=== PATIENT | female | born 1965 | race Caucasian/White ===

== ENCOUNTER 2019-10-30 18:08 | Emergency (ER) | payer OTHER, SELFPAY ==
--- NOTE | ~2019-10-30 | CT_ITS ---
EXAMINATION: CT abdomen pelvis wo con DATE: 10/30/2019 19:18 INDICATION: Abdominal pain. Left low back pain. TECHNIQUE: Computed tomography (CT) of the abdomen and pelvis was performed without intravenous contr ast. Automated exposure control and iterative reconstruction technique were employed. Exam dose: 110 0.51 mGy-cm total exam DLP. COMPARISON: None. FINDINGS: The lung bases are clear. Normal heart size. No pericardial or pleural effusion. Small sliding hiatal hernia. Status post cholecystectomy. The liver, spleen, pancreas, adrenal glands and kidneys are unremarkable on this limited noncontrast examination, with the exception of a moderately prominent asymmetric lef t renal pelvis. No urinary tract calculus or hydroureteronephrosis. The urinary bladder is unremarkab le. Status post hysterectomy. Normal caliber of the abdominal aorta. No intraperitoneal or retroperitoneal or pelvic mass lesion or adenopathy or ascites. There are scattered diverticula of the left colon; there is mild pericolic soft tissue fat infiltrati on in the sigmoid area, suggesting focal sigmoid diverticulitis. No abscess is identified. Normal appendix. No bowel obstruction, bowel wall thickening, pneumatosis or intraperitoneal free air . Included skeletal structures are unremarkable. IMPRESSION: Mild sigmoid diverticulitis; no abscess cavity is identified. Diverticulosis of the left colon Normal appendix Status post cholecystectomy Small hiatal hernia Reviewed, dictated and finalized at [facility]. Reviewed, dictated and finalized at location [facility].
[2019-10-30 18:09] VITALS: BP 147/88; PULSE 93; RESP 17; TEMP 37.3; O2SAT 98
--- NOTE | 2019-10-30 18:24 | ED.BACK ---
HPI - Back Pain/Injury General Chief Complaint: Back Pain/Injury Stated Complaint: Lower Back Pain Time Seen by Provider: 10/30/19 18:14 Source: patient Mode of arrival: ambulatory Limitations: no limitations History of Present Illness HPI Narrative: Patient is a 54-year-old female who presents to emergency department with left lower back pain has been present for the last several days denies injury or trauma pain does not radiate patient denies similar occurrence in the past patient has attempted [id number] medications with minimal improvement patient presents per private vehicle in no distress Related Data Home Medications Medication Instructions Recorded Confirmed progesterone micronized mg 10/30/19 10/30/19 thyroid (pork) [[place] Thyroid] 10/30/19 Allergies Allergy/AdvReac Type Severity Reaction Status Date / Time No Known Allergies Allergy Verified 10/30/19 18:11 Review of Systems Review of Systems: All systems reviewed & are unremarkable except as noted in HPI and below PMFSH Past Medical History Medical History (Updated 10/30/19 @ 20:14 by Gerald Kaplan PA-C) Hypothyroidism Surgical History Surgical History H/O: hysterectomy Social History Social History Smoking status: Never smoker Gender identity (if verbalized by the patient): Female Exam Narrative: Exam Narrative: GENERAL: Well-appearing, well-nourished, and in no acute distress. HEAD: Normocephalic, atraumatic. EYES: PERRLA and EOMI. ENT: Nares clear, no rhinorrhea or epistaxis. Mucous membranes moist. CHEST: Clear to auscultation. No respiratory distress. No wheezes rales or rhonchi HEART: Regular rate and rhythm. No murmur heard. EXTREMITIES: Normal range of motion. No edema. Left lower lumbar paraspinal tenderness no midline or right-sided tenderness SKIN: Warm, dry, no rash. NEURO: No focal deficits. Alert and oriented x3. Cranial nerves II through XII grossly intact PSYCH: Normal mood and affect. Course Course Emergency Course: Patient in the room at this time made aware of case findings treatment plan and diagnosis given medications in the emergency department will be treated for diverticulitis Vital Signs Vital signs: Vital Signs Temperature 99.2 F 10/30/19 18:09 Pulse Rate 93 10/30/19 18:09 Respiratory Rate 17 10/30/19 18:09 Blood Pressure 147/88 H 10/30/19 18:09 Pulse Oximetry 98 10/30/19 18:09 Temperature 99.2 F 10/30/19 18:09 Pulse Rate 93 10/30/19 18:09 Respiratory Rate 17 10/30/19 18:09 Blood Pressure 147/88 H 10/30/19 18:09 Pulse Oximetry 98 10/30/19 18:09 MDM - Back Pain/Injury MDM Narrative Medical decision making narrative: Patient with uncomplicated diverticulitis as the etiology of her symptoms felt appropriate for discharge home will be given gastroenterology follow-up and provided with reasons to return patient is afebrile nontoxic-appearing no distress Lab Data Result diagrams: 10/30/19 18:22 10/30/19 18:22 Labs: Lab Results 10/30/19 10/30/19 10/30/19 Range/Units 18:22 18:22 18:22 WBC 15.2 H (4.5-10.0) K/mm3 RBC 4.66 (4.2-5.4) M/mm3 Hgb 13.1 (12.0-15.0) g/dL Hct 40.7 (37.0-47.0) % MCV 87.3 (80-100) fl MCH 28.1 (26-34) pg MCHC 32.2 (32-36) g/dl RDW 13.1 (11.5-14.5) % Plt Count 268 (150-375) k/mm3 MPV 10.4 (7.4-10.4) fl Immature Gran % (Auto) 0.5 (0-0.5) % Neut % (Auto) 67.3 (45.5-73.1) % Lymph % (Auto) 22.7 (18.3-44.2) % Ocean % (Auto) 8.1 (2.6-8.5) % Eos % (Auto) 1.2 (0-4.4) % Baso % (Auto) 0.2 (0.2-1.2) % Lymph # (Auto) 3.46 H (0.9-3.2) K/mm3 Ocean # (Auto) 1.2 H (0.1-0.6) K/mm3 Eos # (Auto) 0.2 (0-0.3) K/mm3 Baso # (Auto) 0.0 (0.0-0.1) K/mm3 Abs Immat Gran (auto) 0.08 H (0.00-0.031) K/mm3 Absol
[2019-10-30] MEDS: SODIUM CHLORIDE 0.9% IV 1,000 ML 999 ML IV CONT (18:32)
[2019-10-30] MEDS: KETOROLAC 30 MG/ML VIAL (*BKC) IV PUSH (18:32)
[2019-10-30 18:42] LABS: Basophils Percent Auto 0.2 % (0.2-1.2); Eosinophils Absolute Auto 0.2 K/mm3 (0-0.3); Eosinophils Percent Auto 1.2 % (0-4.4); Hematocrit 40.7 % (37.0-47.0); Hemoglobin 13.1 g/dL (12.0-15.0); Immature Granulocyte Absolute 0.08 K/mm3 (0.00-0.031); Immature Granulocyte Percent A 0.5 % (0-0.5); Lymphocytes Absolute Auto 3.46 K/mm3 (0.9-3.2); Lymphocytes Percent Auto 22.7 % (18.3-44.2); Mean Corpuscular HGB Conc 32.2 g/dl (32-36); Mean Corpuscular Hemoglobin 28.1 pg (26-34); Mean Corpuscular Volume 87.3 fl (80-100); Mean Platelet Volume 10.4 fl (7.4-10.4); Monocytes Absolute Auto 1.2 K/mm3 (0.1-0.6); Monocytes Percent Auto 8.1 % (2.6-8.5); Neutrophils Absolute Auto 10.2 K/mm3 (1.3-6.7); Neutrophils Percent Auto 67.3 % (45.5-73.1); Platelet Count Result 268 k/mm3 (150-375); Red Blood Count 4.66 M/mm3 (4.2-5.4); Red Cell Distribution Width 13.1 % (11.5-14.5); White Blood Count 15.2 K/mm3 (4.5-10.0)
[2019-10-30 18:48] LABS: Add Urine Microscopic? YES; Appearance Urine Clear (Clear); Bilirubin Urine Negative (Negative); Blood Urine 2+ (Negative); Color Urine Yellow (Yellow); Glucose Urine UA Negative (Negative); Ketones Urine Negative (Negative); Leukocyte Esterase Ur Negative LEU/UL (Negative); Mucus Urine Rare /lpf; Nitrate Urine Negative (Negative); Protein Urine Negative (Negative); Specific Grav Ur 1.018 (1.001-1.035); Squamous Epithelial Cell Urine Occasional /hpf (Few); Urobilinogen Urine Negative mg/dL (<2.0); WBC Urine 0-3 /hpf
[2019-10-30 18:53] LABS: Anion Gap 7 mmol/L (8-16); Blood Urea Nitrogen 15 mg/dL (7-17); Carbon Dioxide 28 mmol/L (22-30); Chloride 101 mmol/L (98-107); Estimated CRCL calculation 101 ml/min; Estimated Glomerular Filt Rate > 60; Glucose 96 mg/dL (65-105); Potassium 3.9 mmol/L (3.4-5.0); Sodium 136 mmol/L (137-145)
[2019-10-30 20:26] VITALS: BP 135/72; PULSE 78; RESP 18; O2SAT 99
== END 2019-10-30 20:28 | disposition home or self-care (01) ==
PROVIDERS: Emergency Provider Family Medicine; PCP Chiropractor
DX: K57.32 Diverticulitis of large intestine without perforation or abscess without bleeding (principal); E03.9 Hypothyroidism, unspecified; K44.9 Diaphragmatic hernia without obstruction or gangrene
CPT/HCPCS: 36415; 74176; 80048; 81001; 85025; 96361; 96374; 99284; J1885; J7030

== ENCOUNTER 2019-11-15 07:17 | Emergency (ER) | payer OTHER, SELFPAY ==
[2019-11-15 07:41] VITALS: BP 153/97; PULSE 72; RESP 18; TEMP 37; O2SAT 100
[2019-11-15 08:02] LABS: Add Urine Microscopic? YES; Appearance Urine Clear (Clear); Bilirubin Urine Negative (Negative); Blood Urine 1+ (Negative); Color Urine Colorless (Yellow); Glucose Urine UA Negative (Negative); Ketones Urine Negative (Negative); Leukocyte Esterase Ur Trace LEU/UL (Negative); Nitrate Urine Negative (Negative); Protein Urine Negative (Negative); RBC Urine 0-2 /hpf (0-2); Specific Grav Ur 1.005 (1.001-1.035); Squamous Epithelial Cell Urine Rare /hpf (Few); Transitional Epi Cells Urine Rare /hpf (None Seen); Urobilinogen Urine Negative mg/dL (<2.0); WBC Urine 0-3 /hpf
--- NOTE | 2019-11-15 08:03 | ED.BACK ---
HPI - Back Pain/Injury General Chief Complaint: Back Pain/Injury Stated Complaint: back pain Time Seen by Provider: 11/15/19 07:34 Source: patient Mode of arrival: ambulatory Limitations: no limitations History of Present Illness HPI Narrative: 54-year-old female Complains of right-sided low back pain for 2 weeks No history of injury She was seen here about 2 weeks ago At that time she had an elevated white blood count and a CT scan was done which was consistent with sigmoid diverticulitis, and commented bony structures were said to be unremarkable She completed 10-day course of antibiotics I was unable to secure a timely outpatient follow-up so return to the ER today because her pain persists No fever no vomiting no diarrhea no abdominal pain no urinary symptoms and no neurologic symptoms She is tried [id number] ibuprofen which has not helped much MD elicited complaint: back pain Location: lumbar spine and right lower back Exacerbating factors: none Relieving factors: none Associated symptoms: denies other symptoms Related Data Home Medications Medication Instructions Recorded Confirmed progesterone micronized mg 10/30/19 10/30/19 thyroid (pork) [[place] Thyroid] 10/30/19 Allergies Allergy/AdvReac Type Severity Reaction Status Date / Time No Known Allergies Allergy Verified 11/15/19 07:47 [facility] Past Medical History Medical History (Updated 11/15/19 @ 09:42 by Bright Tipotn MD) Hypothyroidism Surgical History Surgical History H/O: hysterectomy Social History Social History Smoking status: Never smoker Gender identity (if verbalized by the patient): Female Exam Const: General: no acute distress and well developed Nutritional Appearance: well nourished and obese Orientation/consciousness: patient oriented x3 (alert) and Other orientation findings (Alert) Limitations: no limitations HENMT: Head: normocephalic and atraumatic Ears: external ears normal General nose exam: No nasal discharge present Face and sinus: face symmetric Mouth: Yes lip normal, Yes tongue normal and Yes moist mucous membranes Throat: other (No exudate, no erythema) Eyes: Conjunctivae: conjunctivae normal Sclera: sclerae normal EOM: EOMs intact bilaterally Neck: Neck: full ROM, no lymphadenopathy and supple Thyroid: thyroid normal Chest: Chest palpation & inspection: no tenderness Resp: Effort & Inspection: normal respiratory effort Auscultation: clear to auscultation bilaterally, no rales, no rhonchi, no wheezes and other (breath sounds equal) Cardio: Rate: regular rate Rhythm: regular rhythm Heart sounds: no gallops and no murmurs GI: Inspection: non-distended GI Palp: No abdominal tenderness, Yes Soft to palpation, No Guarding due to palpation present (GI) and No Rigid due to palpation Auscultation: other (bowel sounds present) : General: Yes no CVA tenderness Back/Spine/Pelvis: Thoracic/Lumbar Spine: thoracic and lumbar spine normal to inspection, straight leg raise negative bilaterally, No thoraco-lumbar spasm and No lumbar spinal tenderness Sacroiliac joints: on the right nontender and on the left nontender Skin: General skin exam: normal color and no rashes or lesions noted Neuro: General: patient oriented x3 (alert), moves all extremities and no focal motor deficits Cranial nerves: Yes facial symmetry Speech: normal speech Motor exam (neuro): Motor abnormalities not present Extrem: General: normal to inspection, full ROM and no pedal edema Other: Full range of motion both hips Psych: Affect: normal affect Course Vital Signs Vital signs: Vital Signs Temperature 37.0 C 11/15/19 07:41 Pulse Rate 72 11/15/19 07:41 Respiratory Rate 18 11/15/19 07:41 Blood Pressure 153/97 H 11/15/19 07:41 Pulse Oximetry 100 11/15/19 07:41 Temperature 37.0 C
[2019-11-15 08:24] LABS: Basophils Percent Auto 0.4 % (0.2-1.2); Eosinophils Absolute Auto 0.1 K/mm3 (0-0.3); Eosinophils Percent Auto 1.6 % (0-4.4); Hematocrit 41.6 % (37.0-47.0); Hemoglobin 13.2 g/dL (12.0-15.0); Immature Granulocyte Absolute 0.05 K/mm3 (0.00-0.031); Immature Granulocyte Percent A 0.6 % (0-0.5); Lymphocytes Absolute Auto 2.49 K/mm3 (0.9-3.2); Lymphocytes Percent Auto 31.3 % (18.3-44.2); Mean Corpuscular HGB Conc 31.7 g/dl (32-36); Mean Corpuscular Hemoglobin 28.2 pg (26-34); Mean Corpuscular Volume 88.9 fl (80-100); Mean Platelet Volume 10.8 fl (7.4-10.4); Monocytes Absolute Auto 0.6 K/mm3 (0.1-0.6); Monocytes Percent Auto 8.1 % (2.6-8.5); Neutrophils Absolute Auto 4.6 K/mm3 (1.3-6.7); Platelet Count Result 346 k/mm3 (150-375); Red Blood Count 4.68 M/mm3 (4.2-5.4); Red Cell Distribution Width 12.8 % (11.5-14.5)
[2019-11-15 08:39] LABS: CRP 0.9 mg/dL (<1.0)
[2019-11-15 09:20] VITALS: BP 123/72; PULSE 65; RESP 18; O2SAT 100
== END 2019-11-15 10:26 | disposition home or self-care (01) ==
PROVIDERS: Emergency Provider Emergency Medicine; PCP Chiropractor
DX: M54.5 Low back pain (principal); E03.9 Hypothyroidism, unspecified
CPT/HCPCS: 36415; 81001; 85025; 86140; 99283

== ENCOUNTER → 2020-03-02 08:41 | Outpatient (CLI) | payer OTHER, SELFPAY ==
--- NOTE | ~2020-03-02 | MR_ITS ---
EXAMINATION: MR lumbar spine wo con EXAM DATE: 03/02/2020 09:18 INDICATION: Low back pain, right groin pain since October 2019. TECHNIQUE: Multi-sequential, multiplanar MR images of the lumbar spine were obtained without contrast . Sagittal T1, T2, T2 fat saturation images. Axial T2 weighted images. There is no prior study for comparison. FINDINGS: There is 2 mm retrolisthesis L5 on S1. The vertebral bodies are otherwise aligned. There is mild diffuse lumbar disc disease. The conus medullaris terminates at the L1/2 level and has normal s ignal intensity and morphology. There are no suspicious marrow signal abnormalities. Paraspinal soft tissue is unremarkable. Level by level evaluation: T12-L1: Disc does not extend beyond the endplate margin. Facet arthropathy: Mild bilateral. Neural foraminal stenosis: No stenosis. Central canal stenosis: No stenosis. L1-L2: Disc does not extend beyond the endplate margin. Facet arthropathy: Mild. Neural foraminal stenosis: No stenosis. Central canal stenosis: No stenosis. L2-L3: There is a mild diffuse disc bulge. Facet arthropathy: Mild. Neural foraminal stenosis: No stenosis. Central canal stenosis: No stenosis. L3-L4: There is a mild diffuse disc bulge. Facet arthropathy: Mild to moderate. Neural foraminal stenosis: Mild left. Central canal stenosis: No stenosis. L4-L5: There is a mild diffuse disc bulge. Facet arthropathy: Mild. Neural foraminal stenosis: Mild bilateral. Central canal stenosis: Mild. L5-S1: There is a mild diffuse disc bulge. Facet arthropathy: Mild. Neural foraminal stenosis: Mild to moderate right, mild left. Central canal stenosis: Mild. IMPRESSION: 1. Mild lumbar spondylosis. Reviewed, dictated and finalized at location [facility]. K GENERAL OFFICE IMPRESSION: 1. Mild lumbar spondylosis.
== END ==
PROVIDERS: Visit Provider Chiropractor
DX: M47.896 Other spondylosis, lumbar region (principal)
CPT/HCPCS: 72148

== ENCOUNTER → 2020-05-25 11:22 | Outpatient (CLI) | payer OTHER, SELFPAY ==
--- NOTE | ~2020-05-25 | MM_ITS ---
EXAMINATION: MM screening [facility] BI w rae HISTORY: Screening mammogram TECHNIQUE: Craniocaudal and mediolateral oblique 3-D tomosynthesis images were obtained and synthetic 2-D images were generated. CAD analysis was submitted and interpreted. COMPARISON: 06/25/2018, 03/12/2017 BREAST PARENCHYMAL COMPOSITION: There are scattered areas of fibroglandular density. FINDINGS: There is no evidence of suspicious mass, calcification, or architectural distortion to sugg est malignancy in either breast. There has been no suspicious interval change. IMPRESSION: 1. No mammographic evidence of malignancy. 2. Recommend routine screening mammography in one year. BI-RADS Category 1: Negative Reviewed, dictated and finalized at location [facility].
== END ==
PROVIDERS: PCP Chiropractor; Visit Provider Chiropractor
DX: Z12.31 Encounter for screening mammogram for malignant neoplasm of breast (principal)
CPT/HCPCS: 77063; 77067

== ENCOUNTER 2021-03-12 17:56 | Emergency (ER) | payer OTHER, SELFPAY ==
[2021-03-12] VITALS (15 sets, daily range): BP systolic 126–158; BP diastolic 74–85; PULSE 58–67; RESP 11–24; TEMP 36.7–36.8; O2SAT 96–100
--- NOTE | ~2021-03-12 | CT_ITS ---
EXAMINATION: CT abdomen pelvis w con DATE: 03/13/2021 00:58 INDICATION: Left lower quadrant abdominal pain for 4 days TECHNIQUE: Computed tomography (CT) of the abdomen and pelvis was performed with 100 cc Omnipaque 350 intravenous contrast. Automated exposure control and iterative reconstruction technique were employe d. Exam dose: 10/30/2019 CT abdomen pelvis mGy-cm total exam DLP. COMPARISON: 10/30/2019 CT abdomen pelvis 05/25/2020 bilateral screening mammogram FINDINGS: Incidental finding of up to approximately 2.3 x 4 cm soft tissue density of the right breas t, not evident on 05/25/2020 screening mammogram examination; diagnostic right mammogram is recommended , with ultrasound if required. Normal heart size. No pericardial or pleural effusion. The lung bases are clear of infiltrate or cons olidation. Small fat-containing foramen of Morgagni hernia. Small sliding hiatal hernia. Status post cholecystectomy; this likely accounts for mild prominence of the intrahepatic bile ducts. No hepatic, splenic, pancreatic, and adrenal or suspicious renal space occupying mass lesion is evid ent. Occasional very small renal cysts. Stable prominent left extrarenal pelvis compared to 10/30/2019. Normal caliber of the abdominal aorta. No intraperitoneal or retroperitoneal or pelvic mass lesion or adenopathy or ascites. Normal appendix. Diverticulosis of the sigmoid and descending colon. There is subtle fat stranding surrounding a promi nent diverticulum of the proximal sigmoid colon, likely representing mild diverticulitis without absc ess formation or intraperitoneal free air. Status post hysterectomy. The urinary bladder is unremarkable. Small fat-containing umbilical hernia. Included skeletal structures are unremarkable. IMPRESSION: Possible right breast 4 cm mass is suggested; diagnostic right mammogram examination is recommended, with ultrasound if required Mild sigmoid diverticulitis Diverticulosis of left colon Normal appendix Status post cholecystectomy Status post hysterectomy Dr. Kitchen telephoned the incidental finding of possible right breast mass and diagnostic mammogram and possible right breast ultrasound recommendation to emergency room physician Dr. Zafar on 03/13/2021 a t 0758 hours. Reviewed, dictated and finalized at [facility]. Reviewed, dictated and finalized at location [facility]. DEVELOPER IMPRESSION: Possible right breast 4 cm mass is suggested; diagnostic right justice mogram examination is recommended, with ultrasound if required Mild sigmoid diverticulitis Diverticulosis of left colon Normal appendix Status post cholecystectomy Status post hysterectomy Dr. Kitchen telephoned the incidental finding of possible right breast mass and di agnostic mammogram and possible right breast ultrasound recommendation to emerg ency room physician Dr. Zafar on 03/13/2021 at 0758 hours.
[2021-03-12 21:50] LABS: Add Urine Microscopic? YES; Appearance Urine Clear (Clear); Bilirubin Urine Negative (Negative); Blood Urine 1+ (Negative); Color Urine Yellow (Yellow); Glucose Urine UA Negative (Negative); Ketones Urine Negative (Negative); Leukocyte Esterase Ur Negative LEU/UL (Negative); Mucus Urine Rare /lpf; Nitrate Urine Negative (Negative); Protein Urine Negative (Negative); Specific Grav Ur 1.018 (1.001-1.035); Squamous Epithelial Cell Urine Rare /hpf (Few); Urobilinogen Urine Negative mg/dL (<2.0); WBC Urine 0-3 /hpf
[2021-03-12 21:51] LABS: Basophils Absolute Auto 0.1 K/mm3 (0.0-0.1); Basophils Percent Auto 0.5 % (0.2-1.2); Eosinophils Absolute Auto 0.2 K/mm3 (0-0.3); Eosinophils Percent Auto 1.4 % (0-4.4); Hematocrit 41.9 % (37.0-47.0); Hemoglobin 13.6 g/dL (12.0-15.0); Immature Granulocyte Absolute 0.04 K/mm3 (0.00-0.031); Immature Granulocyte Percent A 0.4 % (0-0.5); Lymphocytes Absolute Auto 4.15 K/mm3 (0.9-3.2); Lymphocytes Percent Auto 38.1 % (18.3-44.2); Mean Corpuscular HGB Conc 32.5 g/dl (32-36); Mean Corpuscular Hemoglobin 28.5 pg (26-34); Mean Corpuscular Volume 87.7 fl (80-100); Mean Platelet Volume 10.5 fl (7.4-10.4); Monocytes Absolute Auto 0.8 K/mm3 (0.1-0.6); Monocytes Percent Auto 7.5 % (2.6-8.5); Neutrophils Absolute Auto 5.7 K/mm3 (1.3-6.7); Neutrophils Percent Auto 52.1 % (45.5-73.1); Platelet Count Result 267 k/mm3 (150-375); Red Blood Count 4.78 M/mm3 (4.2-5.4); Red Cell Distribution Width 11.9 % (11.5-14.5); White Blood Count 10.9 K/mm3 (4.5-10.0)
--- NOTE | 2021-03-13 00:02 | PC.NURSE ---
lab has rejected 3x chemistry specimens sent to lab as hemolyzed. Senior Software Development Engineer notified of need to draw blood - sent to lab and currently awaiting results of kidney function for CT scan with IV contrast. ED MD notified of delay. Pt and family updated.
[2021-03-13 00:19] LABS: Alanine Aminotransferase 19 U/L (4-35); Albumin Level 4.4 g/dL (3.5-5.1); Alkaline Phosphatase 81 U/L (38-126); Anion Gap 9 mmol/L (8-16); Aspartate Amino Transferase 25 U/L (14-36); Bilirubin,Total 0.4 mg/dL (0.2-1.3); Blood Urea Nitrogen 13 mg/dL (7-17); Calcium 9.3 mg/dL (8.4-10.2); Carbon Dioxide 28 mmol/L (22-30); Chloride 103 mmol/L (98-107); Estimated CRCL calculation 98 ml/min; Estimated Glomerular Filt Rate > 60; Glucose 98 mg/dL (65-110); Potassium 3.7 mmol/L (3.4-5.0); Sodium 140 mmol/L (137-145)
--- NOTE | 2021-03-13 01:21 | ED.ABDPAIN ---
HPI - Abdominal Pain General Chief Complaint: Abdominal Pain Stated Complaint: abd pain Time Seen by Provider: 03/12/21 20:40 Source: patient Mode of arrival: ambulatory Limitations: no limitations History of Present Illness HPI narrative: 55-year-old otherwise healthy here with the complaints of left lower abdominal pain for past 1 week. Patient denies any fever or chills. No history of trauma. She denies any blood in the stool or in the urine. MD elicited complaint: abdominal pain Pertinent past history: none Onset (ago): week(s) (1) Pain Consistency: constant Location: LLQ Severity: moderate Quality: aching Radiation: LLQ Migration to: no migration Exacerbating factors: nothing Relieving factors: nothing Related Data Home Medications Medication Instructions Recorded Confirmed progesterone micronized mg 10/30/19 10/30/19 estradiol 03/12/21 levothyroxine 100 mcg PO DAILY 03/12/21 Allergies Allergy/AdvReac Type Severity Reaction Status Date / Time No Known Allergies Allergy Verified 03/12/21 20:44 Review of Systems Review of Systems: All systems reviewed & are unremarkable except as noted in HPI and below Constitutional: Constitutional: Reports no additional constitutional complaints Eyes: Eyes: Reports no additional eye complaints ENT: Reports system reviewed and no additional complaints, except as documented Cardiovascular: Cardiovascular: Reports no additional cardiovascular complaints Respiratory: Respiratory: Reports no additional respiratory complaints Gastrointestinal: Gastrointestinal: Reports as per HPI Musculoskeletal: Musculoskeletal: Reports no additional musculoskeletal complaints PMFSH Past Medical History Medical History Hypothyroidism Surgical History Surgical History H/O: hysterectomy Social History Social History Smoking status: Never smoker Gender identity (if verbalized by the patient): Female Exam Narrative: GENERAL: Well-appearing, well-nourished, and in no acute distress. HEAD: Normocephalic, atraumatic. EYES: PERRLA and EOMI. NECK: Supple. CHEST: Clear to auscultation. No respiratory distress. HEART: Regular rate and rhythm. No murmur heard. Normal peripheral pulses. ABDOMEN: Soft, Mild tender in the left lower quadrant., nondistended, normal active bowel sounds. EXTREMITIES: Normal range of motion. No edema. SKIN: Warm, dry, no rash. NEURO: No focal deficits. Alert and oriented x3. PSYCH: Normal mood and affect. Course Vital Signs Vital signs: Vital Signs Temperature 36.7 C 03/12/21 17:58 Pulse Rate 67 03/12/21 17:58 Respiratory Rate 18 03/12/21 17:58 Blood Pressure 158/85 H 03/12/21 17:58 Pulse Oximetry 99 03/12/21 17:58 Temperature 36.8 C 03/12/21 23:29 Pulse Rate 60 03/12/21 23:29 Respiratory Rate 16 03/12/21 23:29 Blood Pressure 133/78 03/12/21 23:29 Pulse Oximetry 96 03/12/21 23:29 MDM - Abdominal Pain Lab Data Result diagrams: 03/12/21 21:38 03/12/21 23:52 Labs: Lab Results 03/12/21 03/12/21 03/12/21 Range/Units 21:38 21:38 23:52 WBC 10.9 H (4.5-10.0) K/mm3 RBC 4.78 (4.2-5.4) M/mm3 Hgb 13.6 (12.0-15.0) g/dL Hct 41.9 (37.0-47.0) % MCV 87.7 (80-100) fl MCH 28.5 (26-34) pg MCHC 32.5 (32-36) g/dl RDW 11.9 (11.5-14.5) % Plt Count 267 (150-375) k/mm3 MPV 10.5 H (7.4-10.4) fl Immature Gran % (Auto) 0.4 (0-0.5) % Neut % (Auto) 52.1 (45.5-73.1) % Lymph % (Auto) 38.1 (18.3-44.2) % [place] % (Auto) 7.5 (2.6-8.5) % Eos % (Auto) 1.4 (0-4.4) % Baso % (Auto) 0.5 (0.2-1.2) % Lymph # (Auto) 4.15 H (0.9-3.2) K/mm3 [place] # (Auto) 0.8 H (0.1-0.6) K/mm3 Eos # (Auto) 0.2 (0-0.3) K/mm3 Baso # (Auto) 0.1 (0.0-0.1) K/mm3 Abs I
--- NOTE | 2021-03-13 08:05 | PC.NURSE ---
0804-ATTEMPTED TO CONTACT @ [phone] REGARDING XRAY OVER-READ WENT DIRECTLY TO VOICE MAIL INFORMED TO RETURN CALL.
--- NOTE | 2021-03-13 10:12 | PC.NURSE ---
1008- PT RETURNED CALL,INFORMED OF CT RESULTS OF QUESTIONABLE RIGHT BREAST MASS AND NEED TO FOLLOW UP WITH HER PCP FOR MAMMOGRAM.
== END 2021-03-13 01:58 | disposition home or self-care (01) ==
PROVIDERS: Emergency Provider Family Medicine
DX: N13.0 Hydronephrosis with ureteropelvic junction obstruction (principal); N63.10 Unspecified lump in the right breast, unspecified quadrant; E03.9 Hypothyroidism, unspecified; K57.32 Diverticulitis of large intestine without perforation or abscess without bleeding; K57.90 Diverticulosis of intestine, part unspecified, without perforation or abscess without bleeding
CPT/HCPCS: 36415; 74177; 80053; 81001; 85025; 99284; Q9967

== ENCOUNTER 2021-03-21 13:32 | Outpatient (CLI) | payer OTHER, SELFPAY ==
--- NOTE | ~2021-03-21 | NM_ITS ---
EXAMINATION: CAL peña renal scan DATE: 03/21/2021 14:44 INDICATION: Left hydronephrosis. TECHNIQUE: 8 mCi Tc-99m MAG3 was administered IV. 40 mg furosemide was administered IV immediately a fterward. The patient was scanned in the supine position. A posterior abdominal radionuclide angiogra m was obtained. A subsequent time course of static images of the kidneys, ureters, and bladder was ob tained. COMPARISON: CT abdomen and pelvis 03/13/2021 FINDINGS: The posterior abdominal radionuclide angiogram and sequential static images show normal siz e, position, and morphology of the kidneys. Peak renal parenchymal uptake was 3 min in right kidney a nd 4 min in left kidney (normal peak 3-5 minutes). The relative early renal uptake was 46% on the ri ght and 54% on the left (<40% is abnormal). No abnormalities of the ureters or bladder are seen. T1/2 for clearance of activity from the right kidney and proximal collecting system was 9 minutes. T1/2 for clearance of activity from the left kidney and proximal collecting system was 10 minutes. Notes on interpretation: T1/2 <10 minutes is normal, 10-15 minutes is low grade obstruction of questi onable clinical significance, 15-20 minutes is partial obstruction that is likely clinically signific ant, >20 minutes is high grade obstruction. Note that false positives may be seen with supine positio fabián, dehydration, severely dilated nonobstructed kidney, atonic collecting system, poor renal functi on, and chronic furosemide use. IMPRESSION: 1. Symmetric kidney function. 2. Borderline delay in contrast clearance from left kidney, consistent with low grade obstruction of questionable clinical significance. Reviewed, dictated and finalized at location A. PAPER PRESS OPERATOR APPRENTICE IMPRESSION: 1. Symmetric kidney function. 2. Borderline delay in contrast clearance from left kidney, consistent with lo w grade obstruction of questionable clinical significance.
== END 2021-03-21 13:33 | disposition home or self-care (01) ==
LOC: ANHIMG 13:36
PROVIDERS: PCP Family Medicine; Visit Provider Urology
DX: N13.30 Unspecified hydronephrosis (principal)
CPT/HCPCS: 78708; A9562; J1940

== ENCOUNTER → 2021-04-03 08:26 | Outpatient (CLI) | payer OTHER, SELFPAY ==
--- NOTE | ~2021-04-03 | MMUS_ITS ---
EXAMINATION: MM diagnostic justice RT w rae, US breast RT limited HISTORY: Possible mass seen on recent CT examination. TECHNIQUE: Additional 3-D tomosynthesis images of the right breast were performed and synthetic 2-D i mages were generated. CAD analysis was submitted and interpreted. High resolution Limited right breas t ultrasound was performed. COMPARISON: Comparison to multiple prior studies sequentially, with oldest reviewed study dated 03/12. BREAST PARENCHYMAL COMPOSITION: Breast composed of scattered areas of fibroglandular density. FINDINGS: MAMMOGRAPHIC FINDINGS: There are no suspicious masses, calcifications or architectural distortion in the right breast to sug gest malignancy. ULTRASOUND: Limited right breast ultrasound: Normal heterogeneous echotexture without focal solid or cystic mass. IMPRESSION: 1. No evidence for malignancy in the right breast. 2. Routine yearly screening mammogram and regular clinical breast examination are recommended. BI-RADS Category 1: Negative Reviewed, dictated and finalized at location A. DIABETES EDUCATOR IMPRESSION: 1. No evidence for malignancy in the right breast. 2. Routine yearly screening mammogram and regular clinical breast examination a re recommended. BI-RADS Category 1: Negative
== END ==
PROVIDERS: PCP Family Medicine; Visit Provider Family Medicine
DX: N63.10 Unspecified lump in the right breast, unspecified quadrant (principal); R92.8 Other abnormal and inconclusive findings on diagnostic imaging of breast
CPT/HCPCS: 76642; 77061; 77065; G0279

== ENCOUNTER 2022-03-25 17:16 | Emergency (ER) | payer OTHER, SELFPAY ==
[2022-03-25 17:30] VITALS: BP 126/68; PULSE 65; RESP 18; TEMP 36.3; O2SAT 99
--- NOTE | 2022-03-25 17:37 | ED.EAR ---
HPI - Ear Problem General Chief complaint: Ear Stated complaint: rt ear discomfort Time Seen by Provider: 03/25/22 17:18 Source: patient Mode of arrival: ambulatory Limitations: no limitations History of Present Illness HPI Narrative: 56-year-old female presents to [facility] with complaints of crackling sensation to her right ear for the past 3 days, patient reports that she then started with mild pressure to her right ear. Patient reports that she attempted to use a Q-tip with peroxide with little relief. Patient denies fever, body aches, chills, nausea vomiting, diarrhea, cough, runny nose or nasal congestion MD Complaint: other ( crackling sensation and mild pressure ) Location: right ear Duration: constant Severity: mild Relieving factors: nothing Exacerbating factors: nothing Discharge from ear: Reports no Treatment prior to arrival: none Related Data Allergies Allergy/AdvReac Type Severity Reaction Status Date / Time No Known Allergies Allergy Verified 11/07/21 11:25 Review of Systems Constitutional: Constitutional: Denies chills, Denies fatigue, Denies fever(s) and Denies weakness ENT: Denies vertigo and Denies dizziness Comments: crackling sensation and pressure to right ear Respiratory: Respiratory: Denies cough Gastrointestinal: Gastrointestinal: Denies diarrhea, Denies nausea and Denies vomiting Integumentary/Breasts: Skin/Breast: Denies rash PMFSH Past Medical History Medical History Asthma Hypothyroidism Surgical History Surgical History H/O: hysterectomy Hx of cholecystectomy Family History Family History Father Skin cancer Diabetes mellitus Heart disease Hypertension Mother Diabetes mellitus Heart disease Hypertension Cerebrovascular accident Depression Anxiety Sibling Heart disease Grandparent Heart disease Hypertension Social History Social History Smoking status: Never smoker Alcohol intake: never Substance use: never Living arrangements: with family Occupation/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 There is no relevant family history pertinent to the presenting complaint. Exam Const: General: healthy appearing Nutritional Appearance: well nourished Orientation/consciousness: patient oriented x3 Limitations: no limitations HENMT: Head: normal to inspection Ears: external ears normal and Abnormal EAC present foreign body (cotton tip of Qtip ) on the right Face/Nose/Sinus: Normal external nose present Teeth and gingiva: dentition normal Throat: posterior oropharynx normal and uvula midline Other: Mild nasal congestion noted, right is worse than left Eyes: Conjunctivae: conjunctivae normal Resp: Effort & Inspection: normal respiratory effort and not labored Auscultation: clear to auscultation bilaterally, no crackles, no rales and no rhonchi Cardio: Rate: regular rate Rhythm: regular rhythm Heart sounds: no murmurs Skin: General skin exam: normal color Rashes: no rashes Neuro: Speech: normal speech Psych: Affect: normal affect Attitude: cooperative Course Course Level of Care: Express Care Visit Vital Signs Vital signs: Vital Signs Temperature 36.3 C L 03/25/22 17:30 Pulse Rate 65 03/25/22 17:30 Respiratory Rate 18 03/25/22 17:30 Blood Pressure 126/68 03/25/22 17:30 Pulse Oximetry 99 03/25/22 17:30 Oxygen Delivery Room Air 03/25/22 17:30 Temperatur
== END 2022-03-25 17:59 | disposition home or self-care (01) ==
PROVIDERS: Emergency Provider Nurse Practitioner Family; PCP Family Medicine
DX: T16.1XXA Foreign body in right ear, initial encounter (principal); X58.XXXA Exposure to other specified factors, initial encounter; J45.909 Unspecified asthma, uncomplicated; E03.9 Hypothyroidism, unspecified
CPT/HCPCS: 69200; 99213; G0463

== ENCOUNTER 2022-05-20 17:18 | Emergency (ER) | payer OTHER, SELFPAY ==
[2022-05-20 17:32] VITALS: BP 142/92; PULSE 68; RESP 16; O2SAT 100
[2022-05-20 17:35] VITALS: BP 142/92; PULSE 68; RESP 16; O2SAT 100
--- NOTE | 2022-05-20 17:56 | ED.URI ---
HPI - URI/Sore Throat General Chief Complaint: Upper Respiratory Infection Stated Complaint: sorethroat,sinus drainage,wheezing Time Seen by Provider: 05/20/22 17:56 Source: patient Mode of arrival: ambulatory Limitations: no limitations History of Present Illness HPI Narrative: 56-year-old female presents with complaint of nasal congestion, sinus pressure, postnasal drainage for 3-4 days. Reports cough. Reports voice starting today. History of asthma states that she is intermittently wheezing. Has been using her nebulizer. Afebrile. Normally takes daily antihistamines but has not taken them. Patient speaking in full sentences. No respiratory distress noted. All systems reviewed and negative except as noted above. Related Data Home Medications Medication Instructions Recorded Confirmed Anhudrous gel 1 dose topical DAILY 05/08/22 05/20/22 Testosterone cream 1 ea .Route DAILY 05/08/22 05/20/22 Allergies Allergy/AdvReac Type Severity Reaction Status Date / Time No Known Allergies Allergy Verified 05/20/22 17:32 Review of Systems Review of Systems: CONSTITUTIONAL: Denies fever, chills, or sweats. reports fatigue. EYES: Denies visual changes, redness, or discharge. ENT: reports rhinorrhea, congestion, sore throat. Denies otalgia. CARDIOVASCULAR: Denies chest pain, palpitations, or edema. RESPIRATORY: Reports cough. Denies dyspnea. GASTROINTESTINAL: Denies abdominal pain, nausea, vomiting, or diarrhea. GENITOURINARY: Denies dysuria or hematuria. SKIN: Denies rash or itching. MUSCULOSKELETAL: Denies back pain, joint pain, or myalgia. NEUROLOGIC: Denies headache, numbness, or weakness. PSYCHIATRIC: Denies anxiety or depression. All other systems reviewed are negative, except as documented in HPI. [facility] Past Medical History Medical History (Updated 05/20/22 @ 18:03 by Alicia Harris NP) Asthma Hypothyroidism Weight loss counseling, encounter for Surgical History Surgical History H/O: hysterectomy Hx of cholecystectomy Family History Family History Father Skin cancer Diabetes mellitus Heart disease Hypertension Mother Diabetes mellitus Heart disease Hypertension Cerebrovascular accident Depression Anxiety Sibling Heart disease Grandparent Heart disease Hypertension Social History Social History Smoking status: Never smoker Alcohol intake: never Substance use: never Living arrangements: with family Occupation/Education: occupation Additional occupation/education comments: bankteller Gender identity (if verbalized by the patient): Female Sexual Orientation (if Verbalized by the Patient): Straight or Heterosexual Spiritual care concerns: No Agree to blood products: Yes Comments At time of signature, agree with nursing past medical, surgical, social and family history. There is no relevant family history pertinent to the presenting complaint. Exam Narrative: GENERAL: This is a well-nourished, well-developed patient, in no apparent distress. HEAD: normocephalic, atraumatic. EYES: PERRL. Sclera clear/white. Vision is grossly intact. EARS: External ears normal, auditory canals clear and without drainage, Fluid to bilateral TMs without erythema or perforation. NOSE: External nose normal with Clear nasal drainage, erythema and swelling to bilateral nares. Bilateral maxillary sinus tenderness. THROAT: Mucous membranes moist, Erythema and clear postnasal drainage. NECK: Neck supple, non-tender without lymphadenopathy, masses or thyromegaly. CARDIOVASCULAR: Regular rate and rhythm without murmurs, gallops, or rubs. RESPIRATORY: Clear to auscultation. Breath sounds equal bilaterally. No wheezes, rales, or rhonchi. SKIN: warm, Dry, intact with no suspicious lesions or rash, good texture
== END 2022-05-20 17:56 | disposition home or self-care (01) ==
PROVIDERS: Emergency Provider Nurse Practitioner Family; PCP Family Medicine
DX: J45.901 Unspecified asthma with (acute) exacerbation (principal); J01.90 Acute sinusitis, unspecified; E03.9 Hypothyroidism, unspecified
CPT/HCPCS: 99213; G0463

== ENCOUNTER 2022-09-20 12:52 | Emergency (ER) | payer OTHER, SELFPAY ==
--- NOTE | ~2022-09-20 | XR_ITS ---
XR wrist LT min 3V DATE: 09/20/2022 13:07 INDICATION: Left lateral wrist pain and swelling. No known injury. TECHNIQUE: 4 views COMPARISON: None FINDINGS: There is mild osteoarthritis at the first carpometacarpal joint. No fracture or dislocation, periosteal reaction or bone destruction, erosive change or chondrocalcino sis is noted. IMPRESSION: Mild osteoarthritis at first carpometacarpal joint Reviewed, dictated and finalized at location B.
[2022-09-20 13:00] VITALS: BP 125/82; PULSE 79; RESP 16; TEMP 36.6; O2SAT 97
--- NOTE | 2022-09-20 13:07 | ED.GENADULT ---
HPI - General Adult General Chief complaint: Extremity Problem,Nontraumatic Stated complaint: Lt Wrist Swelling Source: patient Mode of arrival: ambulatory Limitations: no limitations History of Present Illness HPI narrative: 57 y/o female presented for c/o left wrist swelling 6 days ago. Denies injury. Denies significant pain, stating it is 'annoying' and hurts only with certain movements such as lifting something heavy. Denies decreased ROM at the wrist, numbness, tingling or weakness of the hand. Taking ibuprofen which helps temporarily. Related Data Allergies Allergy/AdvReac Type Severity Reaction Status Date / Time No Known Allergies Allergy Verified 09/20/22 13:05 Review of Systems Review of Systems: CONSTITUTIONAL: Denies body aches, fever, chills EYES: Denies visual changes ENT: Denies rhinorrhea, congestion CARDIOVASCULAR: Denies chest pain, palpitations, or edema. RESPIRATORY: Denies cough or dyspnea. GASTROINTESTINAL: Denies abdominal pain, nausea, vomiting, or diarrhea. SKIN: Denies rash, itching, or wounds. MUSCULOSKELETAL: Reports left wrist swelling Denies back pain, or myalgia. NEUROLOGIC: Denies headache, numbness, tingling, or weakness. All systems reviewed & are unremarkable except as noted in HPI and below PMFSH Past Medical History Medical History Asthma Hypothyroidism URI (upper respiratory infection) Weight loss counseling, encounter for Surgical History Surgical History H/O: hysterectomy Hx of cholecystectomy Family History Family History Father Skin cancer Diabetes mellitus Heart disease Hypertension Mother Diabetes mellitus Heart disease Hypertension Cerebrovascular accident Depression Anxiety Sibling Heart disease Grandparent Heart disease Hypertension Social History Social History Smoking status: Never smoker Alcohol intake: never Substance use: never Living arrangements: with family Occupation/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 Please see nursing chart for further information. There is no relevant family history pertinent to the presenting complaint Exam Narrative: GENERAL: Well-appearing, well-nourished, and in no acute distress. HEAD: Normocephalic, atraumatic. EYES: conjunctivae clear NECK: Supple. CHEST: Speaks in full sentences. No respiratory distress. HEART: Regular rate and rhythm. Normal and equal peripheral pulses. EXTREMITIES: Mild left wrist swelling to dorsal surface. Mild erythema. No ecchymosis, warmth or point tenderness. Left hand has normal strength and sensation, full range of motion to wrist and fingers. No open wounds or obvious deformity; alignment normal, pulse palpable and equal bilaterally, skin warm, dry, pink. Capillary refill less than 3 seconds. SKIN: Warm, dry, no rash. NEURO: Alert and oriented x3. PSYCH: Normal mood and affect Course Course Emergency Course: Patient is aware of diagnosis, understands and agrees to treatment plan. Anticipatory guidance given. Patient agrees to follow-up as directed and is aware of reasons to seek care at the emergency department. Portions of this record may have been created with voice recognition software Level of Care: Express Care Visit Vital Signs Vital signs: Vital Signs Temperature 97.9 F 09/20/22 13:00 Pulse Rate 79 09/20/22 13:00 Respir
== END 2022-09-20 13:44 | disposition home or self-care (01) ==
PROVIDERS: Emergency Provider Nurse Practitioner Family; PCP Family Medicine
DX: M25.432 Effusion, left wrist (principal); J45.909 Unspecified asthma, uncomplicated; E03.9 Hypothyroidism, unspecified
CPT/HCPCS: 73110; 99213; G0463

== ENCOUNTER 2023-09-10 15:02 | Outpatient (CLI) | payer OTHER, SELFPAY ==
--- NOTE | ~2023-09-10 | MM_ITS ---
EXAMINATION: MM screening justice BI w rae HISTORY: Screening TECHNIQUE: Craniocaudal and mediolateral oblique 3-D tomosynthesis images were obtained and synthetic 2-D images were generated. CAD analysis was submitted and interpreted. COMPARISON: Comparison to multiple prior studies sequentially, with oldest reviewed study dated 03/12. BREAST PARENCHYMAL COMPOSITION: Not dense: There are scattered areas of fibroglandular density. FINDINGS: There is no evidence of suspicious mass, calcification, or architectural distortion to sugg est malignancy in either breast. There has been no suspicious interval change. IMPRESSION: 1. No mammographic evidence of malignancy. 2. Recommend routine screening mammography in one year. BI-RADS Category 1: Negative Reviewed, dictated and finalized at location B.
== END 2023-09-10 15:03 ==
LOC: MICIMG 15:03
PROVIDERS: PCP Family Medicine; Visit Provider Family Medicine
DX: Z12.31 Encounter for screening mammogram for malignant neoplasm of breast (principal)
CPT/HCPCS: 77063; 77067

== ENCOUNTER 2024-02-20 17:20 | Emergency (ER) | payer OTHER, SELFPAY ==
[2024-02-20 17:36] VITALS: BP 141/74; PULSE 69; RESP 18; TEMP 36.9; O2SAT 99
--- NOTE | 2024-02-20 18:16 | ED.URI ---
HPI - URI/Sore Throat General Chief Complaint: Upper Respiratory Infection Stated Complaint: sore throat Time Seen by Provider: 02/20/24 18:17 Source: patient, RN notes reviewed and old records reviewed Mode of arrival: ambulatory Limitations: no limitations History of Present Illness HPI Narrative: 58-year-old female presents to the [facility] with complaints of a sore throat that started 2 days ago, worse today. Also reports head congestion. Has taken side camping Mucinex as well as using drops. Reports an at home negative COVID test. States that she is flu vaccinated, declining a flu test Onset (ago): day(s) (2) Treatments prior to arrival: cold medicine Related Data Allergies Allergy/AdvReac Type Severity Reaction Status Date / Time No Known Allergies Allergy Verified 02/20/24 18:20 Review of Systems Review of Systems: All systems reviewed & are unremarkable except as noted in HPI and below Constitutional: Constitutional: Reports no additional constitutional complaints ENT: Reports as per HPI and Reports sore throat Cardiovascular: Cardiovascular: Reports no additional cardiovascular complaints, Denies chest pain and Denies dyspnea Respiratory: Respiratory: Reports no additional respiratory complaints, Denies chest congestion, Denies cough and Denies dyspnea Musculoskeletal: Musculoskeletal: Reports no additional musculoskeletal complaints Integumentary/Breasts: Skin/Breast: Reports system reviewed and no additional complaints, except as docu PMFSH Past Medical History Medical History Screening for thyroid disorder Fatigue Arthritis URI (upper respiratory infection) Weight loss counseling, encounter for Asthma Hypothyroidism Surgical History Surgical History Hx of cholecystectomy H/O: hysterectomy Family History Family History Father Skin cancer Diabetes mellitus Heart disease Hypertension Mother Diabetes mellitus Heart disease Hypertension Cerebrovascular accident Depression Anxiety Sibling Heart disease Grandparent Heart disease Hypertension Social History Social History Smoking status: Never smoker Alcohol intake: never Substance use: never Lack of Transportation: No Lack of Food: Never True Current Housing: I Have Housing Concerned About Future Housing: No Difficulty Paying Gas/Electric Bills: No Difficulty Paying for Meds: No Currently Unemployed: No Education: Don't Know Difficulty w/ Childcare or Family Care: No Living arrangements: with family Occupation/Education: occupation Additional occupation/education comments: bankteller Gender identity (if verbalized by the patient): Female Sexual Orientation (if Verbalized by the Patient): Straight or Heterosexual Spiritual care concerns: No Agree to blood products: Yes Comments At the time of my signature, I reviewed and agree with the nursing past medical, surgical, social, and family history. There is no relevant family history pertinent to the patient complaint. Exam Const: General: cooperative, healthy appearing, comfortable, no acute distress, well developed, alert and well nourished Nutritional Appearance: well nourished Orientation/consciousness: patient oriented x3 Limitations: no limitations HENMT: Head: normal to inspection Ears: hearing grossly normal bilaterally, external ears normal, EAC's normal, mastoids normal, no periauricular adenopathy and TM abnormal with fluid behind the TM bilateral Face/Nose/Sinus: Normal nares present, normal facial exam and face symmetric Face and sinus: normal facial exam and face symmetric Mouth: Yes Normal oral and palatal mucosa present, Yes lip normal, Yes tongue normal and Yes moist mucous membranes Throat: uvula midline, posterior oropharynx abnormal cobblestoning and erythema; no edema, no exudates and no lacerations, postnasal drainage, tonsils absent and no uvular edema Eyes: General: appearance normal, both eyes and all related structures Neck: Neck: normal visual inspection, full ROM, no lymphadenopathy and no meningeal signs Chest: Chest palpation & inspection: normal inspection of the chest Resp: Effort & Inspection: normal respiratory effort and able to speak in complete sentences Auscultation: clear to auscultation bilaterally, no crackles, no rales, no rhonchi and no wheezes Cardio: Rate: regular rate Skin: General skin exam: normal color and no rashes or lesions noted Neuro: General: patient oriented x3, gait normal, moves all extremities and no meningeal signs Cognition (Neuro): normal cognition Speech: normal speech Gait exam (Neuro): Normal gait present Extrem: General: normal to inspection, full ROM, capillary refill normal and normal gait Psych: Appearance: grossly normal and well kempt Mental Status: mental status grossly normal Speech and movement: Normal speech and movement present and Clear speech present Affect: normal affect Attitude: cooperative Course Course Level of Care: Express Care Visit Vital Signs Vital signs: Vital Signs Temperature 98.5 F 02/20/24 17:36 Pulse Rate 69 02/20/24 17:36 Respiratory Rate 18 02/20/24 17:36 Blood Pressure 141/74 H 02/20/24 17:36 Pulse Oximetry 99 02/20/24 17:36 Oxygen Delivery Room Air 02/20/24 17:36 Temperature 98.5 F 02/20/24 17:36 Pulse Rate 69 02/20/24 17:36 Respiratory Rate 18 02/20/24 17:36 Blood Pressure 141/74 H 02/20/24 17:36 Pulse Oximetry 99 02/20/24 17:36 Oxygen Delivery Room Air 02/20/24 17:36 Reviewed MDM - URI/Sore Throat MDM Narrative Medical decision making narrative: Patient sitting comfortably in exam room. Nontoxic vitals stable. Patient presents with 2 day history sore throat and head congestion. Negative COVID test at home, declined flu test, strep test is negative. Patient appropriate for outpatient treatment with close follow-up viral pharyngitis. Discharge instructions reviewed with patient, as well as provided in writing per nursing staff. The instructions also include specific and strict return/GO TO THE ER as well as f/u information. All questions have been answered, and the patient deny any further questions with discharge and discharge plan. Some parts of this dictation were generated by voice recognition software and may contain typographical and/or grammatical inaccuracies. Differential Diagnosis Differential diagnosis: Likely upper respiratory infection, otitis media, sinusitis, viral infection, bronchitis, influenza and pharyngitis Lab Data Labs: Lab Results 02/20/24 Range/Units 18:25 POC Grp A Strep Screen Negative (Negative) Reviewed Critical Care Time Critical Care Time Critical Care Time: No Discharge Plan Discharge Clinical Impression: Upper respiratory infection Qualifiers: URI type: unspecified viral URI Qualified Code(s): J06.9 - Acute upper respiratory infection, unspecified Pharyngitis Qualifiers: Pharyngitis/tonsillitis etiology: unspecified etiology Qualified Code(s): J02.9 - Acute pharyngitis, unspecified Patient Disposition: Home, Self-Care Condition: Stable Instructions: Antibiotic Form, Pharyngitis (ED) Additional Instructions: Your rapid strep swab was negative today at [facility]. A throat culture will be sent to the laboratory for further testing. If the test is positive, you will receive a phone call within 48 hours and an appropriate antibiotic will be initiated at that time. Your symptoms are likely due to a viral illness, which is not treated with antibiotics. Typically viral infections last 7-10 days, can linger for couple of weeks. It is very important to treat your symptoms. Drink plenty of water, Gatorade, Pedialyte, ice pops or Jell-O. -Alternate Tylenol and Motrin per package directions for fever or pain. You can alternate every 4 hours -Antihistamine medication such as Benadryl at night and Zyrtec/Claritin/Gina during the day can help improve symptoms. -doing daily nasal irrigations can help relieve pressure your sinuses. Things like a Neti pot -Use Flonase twice a day for 5 days then daily to help reduce the inflammation and dry up your sinuses. -You can also use Mucinex. Be sure to drink plenty of water with this medication at least 8 ounces with every dose and it is important to drink 8 to 10 glasses of water per day. Water is a natural decongestant -Eat and drink things that are easy to swallow, like tea or soup, or popsicles. -Oral rinses such as: Salt water gargles and/or may use topical anesthetic (eg. Chloraseptic spray) or lozenges to relieve dryness or throat pain). -Frequent hand washing or hand apartment hotel manager is one of the best ways to prevent spread of infection. -Using a vaporizer or humidifier at night will also help thin secretions and help with coughing up phlegm. -Follow up with primary care provider in 7-10 days if condition is not improving - For new or worsening symptoms go directly to the nearest ER Patient Language: Ghanaian Prescriptions: No Action albuterol sulfate [ProAir HFA] 90 mcg/actuation HFA aerosol inhaler 1 inh inhalation Q4H Qty: 6.7 0RF Testosterone 2.4% See Rx Instructions .ROUTE .COMPLEX Qty: 30 0RF Rx Instructions: TESTOSTERONE 2.4% CREAM (P#[id number]) (TESTOSTERONE MICRONIZED SOY SOY POWDER, GLYCERIN LIQUID, VERSABASE ) APPLY 1 CLICK (6MG) TOPICALLY TO INNER WRIST OR THIGH (THIN SKIN) DIRECTED ONCE DAILY Anhydrous See Rx Instructions .ROUTE .COMPLEX Qty: 10 4RF Rx Instructions: E3/E2 [80/20] 1% ANHYDROUS GEL (P#[id number]) (ESTRIOL MICRONIZ POWDER, PROPYLENE GLYCOL GLYCOL LIQUID, VERS) APPLY 1 CLICK (~2.5MG) TOPICALLY TO THIN SKIN DIRECTED ONCE DAILY FOR 40 DAYS -- DISPENSE IN TOPICLICK! progesterone micronized 100 mg capsule See Rx Instructions .ROUTE .COMPLEX Qty: 90 1RF Dose Instruction: TAKE 1 CAPSULE BY MOUTH DAILY Rx Instructions: TAKE 1 CAPSULE BY MOUTH DAILY phentermine [Adipex-P] 37.5 mg tablet 37.5 mg PO DAILY Qty: 30 0RF Rx Instructions: must administer 30 minutes before or 1-2 hours after breakfast rosuvastatin 5 mg tablet 5 mg PO DAILY Qty: 90 0RF levothyroxine 100 mcg tablet 100 mcg PO DAILY Qty: 90 0RF Follow-up/Referrals: Shilpi Lazo APRN [Primary Care Provider] - [facility] Time of Disposition: 18:37
[2024-02-20 18:29] LABS: EDSTREPNEGPOS1 Negative (Negative)
== END 2024-02-20 18:46 | disposition home or self-care (01) ==
PROVIDERS: Emergency Provider Nurse Practitioner; PCP Nurse Practitioner Family
DX: J06.9 Acute upper respiratory infection, unspecified (principal); E03.9 Hypothyroidism, unspecified
CPT/HCPCS: 87081; 87880; 99213; G0463

== ENCOUNTER 2024-10-11 15:44 | Outpatient (CLI) | payer OTHER, SELFPAY ==
--- NOTE | ~2024-10-11 | MR_ITS ---
EXAMINATION: MR wrist LT wo con DATE: 10/11/2024 16:17 INDICATION: Left wrist pain TECHNIQUE: Magnetic resonance imaging (MRI) of the left wrist was performed without intravenous contrast. Sequences performed include axial PD-weighted FSE and PD-weighted FS FSE, coronal PD-weighted FS FSE and T1-weighted SE, and sagittal PD-weighted FS FSE and PD-weighted FSE. COMPARISON: None FINDINGS: Intrinsic ligaments: Mild increased signal involving the dorsal and volar components of the scapholunate ligament suggesting partial tear without evident fluid signal intensity full-thickness tear defect. The lunotriquetral ligament is normal. Triangular fibrocartilage complex (TFCC): The triangular fibrocartilage including its foveal and styloid attachments as well as the volar radioulnar ligaments are normal. There is some increased signal extending longitudinally along the dorsal radioulnar ligament consistent with partial tear. The ulnar collateral ligament, ulnotriquetral ligament and meniscal homologue are normal. The extensor carpi ulnaris tendon sheath is normal. Extensor wrist: Extensor tendons of the wrist are normal. No tenosynovitis. Flexor wrist: The flexor tendons of the wrist are normal. No abnormality in the carpal tunnel with normal median nerve. Guyon's canal: Guyon's canal including the ulnar nerve and artery are normal. Bones/other: Bone alignment is normal. No fracture or osteonecrosis or pathologic marrow replacing process. Polyarticular osteoarthritis, moderate severity at the triscaphe joint and at the scaphoid capitate articulation of the midcarpal joint with subarticular edema-like and cystlike changes at the scaphoid. Additional mild edema-like signal change at the lunate underlying the footplate of the radial lunate ligament. Mild osteoarthritis at the distal radioulnar, wrist and at the carpal metacarpal joints. IMPRESSION: 1. Partial tear of the dorsal radioulnar ligament. Remainder of the triangular fibrocartilage complex appears normal. 2. Suggestion of partial tear of the dorsal and volar components of the scapholunate ligament without evident focal signal intensity tear defect or secondary dorsal intercalated segment instability (DISI). 3. Polyarticular osteoarthritis, moderate severity at the triscaphe joint and radial capitate articulation of the midcarpal joint. Reviewed, dictated and finalized at location A. IMPRESSION: 1. Partial tear of the dorsal radioulnar ligament. Remainder of the triangular fibrocartilage complex appears normal. 2. Suggestion of partial tear of the dorsal and volar components of the scaphol unate ligament without evident focal signal intensity tear defect or secondary dorsal intercalated segment instability (DISI). 3. Polyarticular osteoarthritis, moderate severity at the triscaphe joint and r adial capitate articulation of the midcarpal joint.
== END 2024-10-11 15:45 | disposition home or self-care (01) ==
LOC: MICIMG 15:46
PROVIDERS: PCP Nurse Practitioner Family; Visit Provider Nurse Practitioner Family
DX: M19.032 Primary osteoarthritis, left wrist (principal)
CPT/HCPCS: 73221

== ENCOUNTER 2024-11-01 05:44 | Day surgery (SDC) | payer OTHER, SELFPAY ==
[2024-03-10 13:33] VITALS: BMI 34.7
[2024-10-19 07:16] VITALS: BMI 32.5
--- OUTSIDE RECORDS SUMMARY | 2024-11-01 06:04 | XMS_ITS | Clinical Summary ---
Author Organization [facility] Address [facility] [place] [address] Care Team Providers Care Life Advisor Name Role Phone Hilaria Boss DO Primary Care Provider Allergies No known active allergies Medications levothyroxine (SYNTHROID) 100 MCG tablet Take 1 tablet (100 mcg total) by mouth daily. 06/27/2021 Active rosuvastatin (CRESTOR) 5 MG tablet Take 1 tablet (5 mg total) by mouth daily. 09/07/2021 Active cetirizine (ZYRTEC) 10 MG tablet Take 1 tablet (10 mg total) by mouth daily. Active TESTOSTERONE 5MG/GM TP CREA daily. Takes 2.4 mg Active Albuterol-Budeso nide (AIRSUPRA) 90-80 MCG/ACT Aerosol Active Active Problems Problem Noted Date Diagnosed Date Palpitations 09/14/2021 Assessment & Plan (09/14/2021 9:54 AM CDT): I reviewed her EKG and it shows normal sinus rhythm. I reviewed her Holter monitor and it does not show any concerning arrhythmias. Given that there was a question of whether or not she had symptoms, I offered a longer monitor. At this time, she declined. I reassured her that there is nothing concerning on the Holter monitor. I discussed beta-thais therapy, and her symptoms are not affecting her lifestyle and therefore we will hold off on prescription medical treatment. Elevated BP without diagnosis of hypertension Assessment & Plan (09/14/2021 9:54 AM CDT): Her blood pressure was elevated in the office today. I encouraged home blood pressure monitoring. Class 2 obesity due to exces s calories without serious comorbidity with body mass index (BMI) of 35.0 to 35.9 in adult 09/14/2021 Assessment & Plan (09/14/2021 9:55 AM CDT): She is obese with a Body mass index is 35.15 kg/m . She was educated on lifestyle modifications including diet and exercise. Family History Medical History Relation Comments Aortic aneurysm Brother 1 Diabetes Father Heart Disease Father Hypertension Father Open Heart Father Diabetes Mother Heart Disease Mother Hypertension Mother Open Heart Mother Stroke Mother Open Heart Paternal Grandmother Stroke Paternal Grandmother Relation Status Comments Brother 1 Alive Brother 2 Alive Father Maternal Grandfather Maternal Grandmother Mother Alive Paternal Grandfather Paternal Grandmother Social History Tobacco Use Types Packs/Day Years Used Date Smoking Tobacco: Never Smokeless Tobacco: Never Tobacco Cessation:Counseling Given: Not Answered Alcohol Use Standard Drinks/Week Comments Yes 0 (1 standard drink = 0.6 oz pur e alcohol) rare PHQ-2 Answer Date Recorded Patient Health Questionnaire-2 Score 0 07/15/2023 Comments Unknown Sex and Gender Information Value Date Recorded Sex Assigned at Not on file Legal Sex Female 5:53 PM CDT Gender Identity Not on file Sexual Orientation Not on file Last Filed Vital Signs Vital Sign Reading Time Taken Comments Blood Pressure 142/86 04/09/2024 4:35 PM [employer] Pulse 74 04/09/2024 4:26 PM [employer] Temperature 36.6 C (97.9 F) 04/09/2024 4:26 PM [employer] Respiratory Rate 19 04/09/2024 4:26 PM [employer] Oxygen Saturation 97% 04/09/2024 4:26 PM [employer] Inhaled Oxygen Concentration - - Weight 111.1 kg (245 lb) 04/09/2024 4:26 PM [employer] Height 175.3 cm (5' 9) 04/09/2024 4:26 PM [employer] Body Mass Index 36.18 04/09/2024 4:26 PM [employer]ION WORKER Plan of Treatment Health Maintenance Due Date Last Done Comments Annual Physical 1968 Hepatitis C 08/26/1983 DTaP, Tdap and Td Vaccines ( 1 - Tdap) 1984 Pneumococcal Vaccine: 50+ Ye ars (1 of 1 - PCV) 08/26/2015 Zoster Vaccines (1 of 2) 08/26/2015 Mammogram Screening 04/12/2017 04/12/2015 Colorectal Cancer Screening Colonoscopy (10 Years) 11/25/2023 11/24/2013 PHQ-2 (Physician [place]) 02/25/2024 07/15/2023 COVID-19 Vaccine (1 - 2023-2 5 season) 2024 Meningococcal B Vaccine Aged Out No l onger eligible based on patient's age to complete this topic Meningococcal Vaccine Aged Out No aurora kalin eligible based on patient's age to complete this topic RSV Immunizations Under 20 Months Aged Out No longer eligible based on patient's age to complete this topic Procedures Procedure Name Priority Date/Time Associated Diagnosis Comments MG SCREENING CANDELARIA DIGI Routine 04/12/2015 4:43 PM [employer] COLONOSCOPY Routine 11/24/2013 12:00 AM CDT from Last 3 Months or Most Recently Relevant to Health Maintenance Results * MG SCREENING CANDELARIA DIGI (04/12/2015 4:43 PM MISSION WORK[employer]) Anatomical Region Laterality Modality Breast Bilateral Mammography 04/12/2015 4:43 PM M[employer]ION WORKER 04/12/2015 4:43 PM MISSION WORKER Narrative 04/12/2015 4:49 PM MISSION WORKER [place] ADMIT/SERVICE DATE: 04/06/15 ACCT: [id number] DISCHARGE DATE: : 1965 SEX: F ORD SITE: [facility] PT TYPE: REG CLI ORDERING MD: PARIS ONEAL MD STUDY DATE REPORT # ORDER # EXT ORDER ID 04/06/15 [id number] PROC CODE: SCMAMDGB PROCEDURE DESCRIPTION: MG SCREEN MAMMO DIGITAL BI IMAGING STUDIES: MG SCREEN MAMMO DIGITAL BI DATE: 04/06/2015 10:37 AM HISTORY: OTHER - ROUTINE MAMM COMPARISON: 05/27/2013 AND 02/10/2012 FROM [facility]. INTERPRETATION OF THE STUDY WAS DELAYED IN ORDER TO OBTAIN THESE COMPARISON EXAMS. DISCUSSION: BILATERAL DIGITAL SCREENING MAMMOGRAM WITH CAD. STANDARD MAMMOGRAPHIC VIEWS. SCATTERED FIBROGLANDULAR TISSUE. NO MAMMOGRAPHICALLY SUSPICIOUS MASS, MICROCALCIFICATION, OR ARCHITECTURAL DISTORTION. IMPRESSION: NO MAMMOGRAPHIC EVIDENCE OF MALIGNANCY. RECOMMEND ANNUAL MAMMOGRAM. BI-RADS CATEGORY 1 NEGATIVE MQSA MAMMOGRAM CLASSIFICATION BI-RADS CATEGORY 0 - NEED ADDITIONAL IMAGING EVALUATION. BI-RADS CATEGORY 1 - NEGATIVE BI-RADS CATEGORY 2 - BENIGN FINDINGS BI-RADS CATEGORY 3 - PROBABLY BENIGN FINDING-SHORT INTERVAL FOLLOW UP SUGGESTED BI-RADS CATEGORY 4 - SUSPICIOUS ABNORMALITY - BIOPSY SHOULD BE CONSIDERED BI-RADS CATEGORY 5 - HIGHLY SUGGESTIVE OF MALIGNANCY - APPROPRIATE ACTION SHOULD BE TAKEN A. A NEGATIVE REPORT SHOULD NOT DELAY A BIOPSY IF A DOMINANT OR CLINICALLY SUSPICIOUS MASS IS PRESENT. B. ADENOSIS AND DENSE BREASTS MAY OBSCURE AN UNDERLYING NEOPLASM. C. COMPUTER AIDED DETECTION UTILIZED IN THE INTERPRETATION OF THIS STUDY. ELECTRONICALLY SIGNED BY LEEROY NESS MD Procedure Note Michel Long MD - 12/18/2017 [place] [place] ADMIT/SERVICE DATE:04/06/15 ACCT: [id number] DISCHARGE DATE: : 1965 SEX: F ORD SITE: [facility] PT TYPE: REG CLI ORDERING MD:PARIS ONEAL MD STUDY DATE REPORT # ORDER # EXT ORDER ID 04/06/15 [id number] PROC CODE: SCMAMDGB PROCEDURE DESCRIPTION: MG SCREEN MAMMO DIGITAL BI IMAGING STUDIES: MG SCREEN MAMMO DIGITAL BI DATE: 04/06/2015 10:37 AM HISTORY: OTHER - ROUTINE MAMM COMPARISON: 05/27/2013 AND 02/10/2012 FROM [facility]. INTERPRETATION OF THE STUDY WAS DELAYED IN ORDER TO OBTAIN THESECOMPARISON EXAMS. DISCUSSION: BILATERAL DIGITAL SCREENING MAMMOGRAM WITH CAD. STANDARD MAMMOGRAPHICVIEWS. SCATTERED FIBROGLANDULAR TISSUE. NO MAMMOGRAPHICALLY SUSPICIOUS MASS, MICROCALCIFICATION, OR ARCHITECTURALDISTORTION. IMPRESSION: NO MAMMOGRAPHIC EVIDENCE OF MALIGNANCY. RECOMMEND ANNUAL MAMMOGRAM. BI-RADS CATEGORY 1 NEGATIVE MQSA MAMMOGRAM CLASSIFICATION BI-RADS CATEGORY 0 - NEED ADDITIONAL IMAGING EVALUATION. BI-RADS CATEGORY 1 - NEGATIVE BI-RADS CATEGORY 2 - BENIGN FINDINGS BI-RADS CATEGORY 3 - PROBABLY BENIGN FINDING-SHORT INTERVAL FOLLOW UPSUGGESTED BI-RADS CATEGORY 4 - SUSPICIOUS ABNORMALITY - BIOPSY SHOULD BE CONSIDERED BI-RADS CATEGORY 5 - HIGHLY SUGGESTIVE OF MALIGNANCY - APPROPRIATE ACTIONSHOULD BE TAKEN A. A NEGATIVE REPORT SHOULD NOT DELAY A BIOPSY IF A DOMINANT ORCLINICALLY SUSPICIOUS MASS IS PRESENT. B. ADENOSIS AND DENSE BREASTS MAY OBSCURE AN UNDERLYING NEOPLASM. C. COMPUTER AIDED DETECTION UTILIZED IN THE INTERPRETATION OF THISSTUDY. ELECTRONICALLY SIGNED BY LEEROY NESS MD us Paris Oneal MD MAMMO Final Resul t * Colonoscopy (11/24/2013 12:00 AM CDT) 11/24/2013 11/24/2013 Narrative [facility] TO [facility] CONVERSION - 11/24/2013 12:00 AM CDT Documented hx of procedure Procedure Note , Generic ConversionMD - 12/28/2017 Documented hx of procedure us Generic Conversion Md LONG GI PROCEDURE ORDERABLES Final Result [facility] TO [facility] CONVERSION from Last 3 Months or Most Recently Relevant to Health Maintenance Insurance [facility] Care Teams Life Advisor Relationship Specialty Start Date End Date Hilaria Boss DO PCP - General FAMILY [facility]ACT[facility] 04/11/21
[2024-11-01 06:24] VITALS: BMI 32.9
[2024-11-01 06:25] VITALS: BP 121/88; PULSE 67; RESP 16; TEMP 36.2; O2SAT 99
--- NOTE | 2024-11-01 07:11 | WPDANESEPPF ---
Anes - Initial Pre Proc Eval Procedure: Operation Date: 11/01/24 07:30 Proposed Procedures p Screening Colonoscopy - Getachew Feliz MD Date/Time: 11/01/24 07:11 Surgeon: Getachew Feliz MD Pre Op Diagnosis: Neoplasm Screening Patient Data Age: 59 Gender: F Height: 1.75 m Weight: 101.1 kg Last Vital Signs Temp 97.1 F L 11/01/24 06:25 Pulse 67 11/01/24 06:25 Resp 16 11/01/24 06:25 BP 121/88 11/01/24 06:25 Pulse Ox 99 11/01/24 06:25 O2 Del Method Room Air 11/01/24 06:25 Allergies Allergy/AdvReac Type Severity Reaction Status Date / Time No Known Allergies Allergy Verified 11/01/24 06:14 Home Medications ?Medication ?Instructions ?Recorded ?Confirmed ?Type Testosterone 2.4% See Rx Instructions .Route 01/13/23 11/01/24 Rx .COMPLEX #30 grams Anhydrous See Rx Instructions .Route 06/30/23 11/01/24 Rx .COMPLEX #10 grams progesterone micronized 100 mg See Rx Instructions .Route 08/06/23 11/01/24 Rx capsule .COMPLEX #90 caps albuterol 90 mcg-budesonide 80 2 inh inhalation ONCE #32.1 grams 03/04/24 11/01/24 Rx mcg/actuation HFA aerosol inhaler (Airsupra) rosuvastatin 5 mg tablet 5 mg PO DAILY #90 tabs 06/08/24 11/01/24 Rx levothyroxine 100 mcg tablet 100 mcg PO DAILY #90 tabs 08/02/24 11/01/24 Rx tirzepatide (weight loss) 7.5 7.5 mg subcut WEEKLY 10/19/24 11/01/24 History mg/0.5 mL subcutaneous solution Patient hx anesthesia problems: none Family hx anesthesia problems: none Results Review: All pre-operative results and documents have been reviewed as part of the pre-operative evaluation. [facility] Past Medical History Medical History Arthritis Hypothyroidism Surgical History Surgical History Hx of cholecystectomy H/O: hysterectomy Family History Family History Father Skin cancer Diabetes mellitus Heart disease Hypertension Mother Diabetes mellitus Heart disease Hypertension Cerebrovascular accident Depression Anxiety Sibling Heart disease Grandparent Heart disease Hypertension Social History Social History (Updated 10/27/24 @ 08:06 by Lolita De Dios) Social History: 07/29/24 Very confident with medical forms Caffeine-coffee/soda Smoking status: Never smoker Alcohol intake: current Alcohol use details: rare Substance use: never Substance use type: does not use Do You Feel Safe in your Home?: Yes Lack of Transportation: No Lack of Food: Never True Current Housing: I Have Housing Concerned About Future Housing: No Difficulty Paying Gas/Electric Bills: No Difficulty Paying for Meds: No Currently Unemployed: No Education: Trade/Vocational Certificate Difficulty w/ Childcare or Family Care: No Living arrangements: with family Occupation/Education: occupation Additional occupation/education comments: [employer] Gender identity (if verbalized by the patient): Female Sexual Orientation (if Verbalized by the Patient): Straight or Heterosexual Spiritual care concerns: No Agree to blood products: Yes Anes - Eval Final PreProcedure Day of Procedure 11/01/24 07:11 Heart: regular rate and rhythm Lungs: clear to auscultation Airway: Mallampati scale class II Neurological: alert and oriented Last oral intake: >/= 8 hours ASA classification: III Anesthetic plan: proceed Anesthesia type and monitoring: monitored anesthesia care Results Review: All pre-operative results and documents have been reviewed as part of the pre-operative evaluation. Informed Consent: The patient's anesthetic plan and its attendant risks and benefits were discussed with the patient/family/POA. Questions were solicited and answers provided to the satisfaction of the patient/family/POA.
[2024-11-01] MEDS: LACTATED RINGERS 1,000 ML 150 ML IV CONT (07:20)
--- NOTE | 2024-11-01 07:28 | P.HP_ITS ---
H&P: HPI History of Present Illness Date/Time: 11/01/24 07:28 Chief Complaint: Screening colonoscopy Narrative: This is the patient's 2nd colonoscopy. There are no GI symptoms and there is no family history of colorectal cancer. Review of Systems Review of Systems: All systems reviewed & are unremarkable except as noted in HPI and below PMFSH Past Medical History Medical History Arthritis Hypothyroidism Surgical History Surgical History Hx of cholecystectomy H/O: hysterectomy Family History Family History Father Skin cancer Diabetes mellitus Heart disease Hypertension Mother Diabetes mellitus Heart disease Hypertension Cerebrovascular accident Depression Anxiety Sibling Heart disease Grandparent Heart disease Hypertension Social History Social History (Updated 10/27/24 @ 08:06 by Lolita De Dios) Social History: 07/29/24 Very confident with medical forms Caffeine-coffee/soda Smoking status: Never smoker Alcohol intake: current Alcohol use details: rare Substance use: never Substance use type: does not use Do You Feel Safe in your Home?: Yes Lack of Transportation: No Lack of Food: Never True Current Housing: I Have Housing Concerned About Future Housing: No Difficulty Paying Gas/Electric Bills: No Difficulty Paying for Meds: No Currently Unemployed: No Education: Trade/Vocational Certificate Difficulty w/ Childcare or Family Care: No Living arrangements: with family Occupation/Education: occupation Additional occupation/education comments: [employer] Gender identity (if verbalized by the patient): Female Sexual Orientation (if Verbalized by the Patient): Straight or Heterosexual Spiritual care concerns: No Agree to blood products: Yes Meds Home Medications and Allergies Home Medications ?Medication ?Instructions ?Recorded ?Confirmed ?Type Testosterone 2.4% See Rx Instructions .Route 1 03/15/22 11/01/24 Rx .COMPLEX #30 grams Anhydrous See Rx Instructions .Route 0 06/30/23 11/01/24 Rx .COMPLEX #10 grams progesterone micronized 100 mg See Rx Instructions .Ro port gamble 08/06/23 11/01/24 Rx capsule .COMPLEX #90 caps albuterol 90 mcg-budesonide 80 2 inh inhalation ONCE # 32.1 grams 01/09/25 09/08/25 Rx mcg/actuation HFA aerosol inhaler (Airsupra) rosuvastatin 5 mg tablet 5 mg PO DAILY #90 tabs 06/0811/01/24 Rx levothyroxine 100 mcg tablet 100 mcg PO DAILY #90 tabs 08/02/24 11/01/24 Rx tirzepatide (weight loss) 7.5 7.5 mg subcut WEEKLY 11/01/24 History mg/0.5 mL subcutaneous solution Allergies Allergy/AdvReac Type Severity Reaction Status Date / Time No Known Allergies Allergy Verified 11/01/24 06:14 Vital Signs Vital Signs - 24 hr 11/01/24 06:25 Temperature 97.1 F L Pulse Rate 67 Respiratory Rate 16 Blood Pressure 121/88 Pulse Oximetry 99 Oxygen Delivery Room Air Exam Const: General: cooperative and healthy appearing Resp: Effort & Inspection: normal respiratory effort and able to speak in complete sentences Auscultation: clear to auscultation bilaterally Cardio: Rate: regular rate Rhythm: regular rhythm GI: Inspection: normal to inspection GI Palp: No No hepatosplenomegaly present Auscultation: normal bowel sounds Rectal Exam: deferred Skin: General skin exam: normal color Psych: Appearance: grossly normal Mental Status: mental status grossly normal Assessment and Plan Assessment and plan (1) Encounter for screening colonoscopy: Code(s): Z12.11 - Encounter for screening for malignant neoplasm of colon Status: Acute Plan The patient is deemed a good candidate for the procedure. Consent signed. Will proceed.
--- NOTE | 2024-11-01 07:59 | WPDANESPN ---
Anes - Prog Note Post-Op Date/Time: 11/01/24 07:59 Vital Signs: Last Vital Signs Temp 97.1 F L 11/01/24 06:25 Pulse 67 11/01/24 06:25 Resp 16 11/01/24 06:25 BP 121/88 11/01/24 06:25 Pulse Ox 99 11/01/24 06:25 O2 Del Method Room Air 11/01/24 06:25 Pain Score (VAS): no Patient Feedback: Patient satisfied with anesthetic care.
[2024-11-01 08:01] VITALS: BP 117/93; PULSE 73; RESP 16; O2SAT 100
[2024-11-01 08:11] VITALS: BP 118/96; PULSE 68; RESP 16; O2SAT 100
[2024-11-01 08:21] VITALS: BP 136/85; PULSE 62; RESP 16; O2SAT 100
== END 2024-11-01 08:27 | disposition home or self-care (01) ==
PROVIDERS: PCP Nurse Practitioner Family; Visit Provider Internal Medicine Gastroenterology
PROC: 0DJD8ZZ Inspection of Lower Intestinal Tract, Via Natural or Artificial Opening Endoscopic (ICD-10-PCS; CPT 45378; principal; 2024-11-01 07:30)
DX: Z12.11 Encounter for screening for malignant neoplasm of colon (principal); K57.30 Diverticulosis of large intestine without perforation or abscess without bleeding
CPT/HCPCS: 45378

== ENCOUNTER 2024-11-19 08:00 | Outpatient (RCR) | payer OTHER, SELFPAY ==
--- NOTE | 2024-09-20 09:03 | OTOPEVAL1 ---
Assessment and note entered by Abdias Bhat, [place], [place] OT Evaluation Information 09/20/24 Assessment Status Evaluation Diagnosis M25.532 Pain in left wrist Subjective Information Patient is left handed. 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 She reports feeling an onset of left wrist pain about 3-4 years ago. Denies any particular trauma to the wrist. X-rays negative for osseous abnormality. She reports she tends to favor the right hand for any heavy lifting due to fear of left sided pain and increased swelling. Today the dorsum of the wrist is swollen compared to the right. Assessment OT Clinical Summary Patient referred to OT with left wrist pain for the past 3-4 years. Pain and swelling located to the dorsal wrist, particularly the distal 2 inches of the wrist, spanning across the entire wrist. Patient's ulnar styloid is more prominent compared to the right side. When at rest the patient avoids fully pronating the forearm without realizing. Patient's symptoms are recreated when the forearm is fully pronated. ROM testing reveals slight discrepancy between the right. The left forearm does not pronate as far and the left wrist does not flex as far. With palpation - the left ulna demonstrates a positive piano campbell sign, indicative of a ligamentous disruption at the distal radio ulnar joint (DRUJ). Ulnar fovea sign is negative. Due to the chronicity of this issue it appears patient would benefit from MRI to evaluate the ligamentous structures of the DRUJ. We discussed activity modification, immobilization , and gentle strengthening to support this joint. At this time no further skilled therapy is indicated without imaging. We will plan to leave her chart open x1 month to allow her to return or resume therapy as imaging indicates. Thank you for this referral. Plan of Care Interventions Therapeutic Exercise OT Services Indicated Yes Treatment Frequency and At this time no further skilled therapy is Duration indicated without imaging. We will plan to leave her chart open x1 month to allow her to return or resume therapy as imaging indicates. These treatments will address the objective and functional deficits as defined above. The patient will be advanced safely and appropriately in order for the patient to progress towards his/her prior level of function. Additional exercises will be introduced and as well as a comprehensive home exercise program upon discharge, if needed, ?to ensure carryover of functional gains achieved in the clinic. This treatment plan has been reviewed and agreement upon by the patient.
--- NOTE | 2024-09-20 09:06 | OPREHPOC ---
Outpatient Therapy Plan of Care This is a Multidisciplinary Plan of Care that may contain components documented by all disciplines (PT, OT, and ST.) OT Problem 1 OT Problem #1 Knowledge Deficit OT Goal 1 Goal / Goal Update 1. Patient to be independent with gentle strengthening HEP. Target Visit 2
--- NOTE | 2024-11-02 09:14 | OTOPEVAL1 ---
Assessment and note entered by Abdias Bhat, [place], CHT Evaluation Information Diagnosis M25.532 Pain in left wrist Subjective Information Patient is left handed. 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 She reports feeling an onset of left wrist pain about 3-4 years ago. Denies any particular trauma to the wrist. X-rays negative for osseous abnormality. She reports she tends to favor the right hand for any heavy lifting due to fear of left sided pain and increased swelling. Today the dorsum of the wrist is swollen compared to the right. L wrist MRI 10/11/24: 1. Partial tear of the dorsal radioulnar ligament. Remainder of the triangular fibrocartilage complex appears normal. 2. Suggestion of partial tear of the dorsal and volar components of the scapholunate ligament without evident focal signal intensity tear defect or secondary dorsal intercalated segment instability (DISI). 3. Polyarticular osteoarthritis, moderate severity at the triscaphe joint and radial capitate articulation of the midcarpal joint. Reported Pain Level Pain Score 0: Self Report Additional Pain Score Comments No pain at rest. Patient experiencing pain with forearm rotation, weight bearing Assessment OT Clinical Summary Patient referred to OT with left wrist pain for the past 3-4 years. Diagnosis following MRI - TFCC sprain. Pain and swelling located to the dorsal wrist, particularly the distal 2 inches of the wrist, spanning across the entire wrist. Patient's ulnar styloid is more prominent compared to the right side. When at rest the patient avoids fully pronating the forearm without realizing. Patient's symptoms are recreated when the forearm is fully pronated. ROM testing reveals slight discrepancy between the right. The left forearm does not pronate as far and the left wrist does not flex as far. With palpation - the left ulna demonstrates a positive piano campbell sign, indicative of a ligamentous disruption at the distal radio ulnar joint (DRUJ). Ulnar fovea sign is negative. Today a custom [place] splint was fabricated to immobilize the wrist and forearm. She demonstrates good elbow flexion/extension ROM as well as finger and thumb ROM. We discussed activity modification, immobilization schedule, and gentle ROM HEP. Continued skilled OT indicated for splinting modification, modalities, ROM, and gentle strengthening for optimal functional healing and strength of the wrist and forearm to facilitate return to pain free functioning. Plan of Care Interventions Therapeutic Exercise,Manual Therapy,Neuro Re- education,Therapeutic Activities,Hot Pack/Cold Pack,Self-Care/Home Management,Check Out for Orthotic/Prosthetic,Ultrasound,Paraffin OT Services Indicated Yes Treatment Frequency and 1x/week for 6 weeks Duration These treatments will address the objective and functional deficits as defined above. The patient will be advanced safely and appropriately in order for the patient to progress towards his/her prior level of function. Additional exercises will be introduced and as well as a comprehensive home exercise program upon discharge, if needed, ?to ensure carryover of functional gains achieved in the clinic. This treatment plan has been reviewed and agreement upon by the patient.
--- NOTE | 2024-11-02 09:14 | OPREHPOC ---
Outpatient Therapy Plan of Care This is a Multidisciplinary Plan of Care that may contain components documented by all disciplines (PT, OT, and ST.) OT Problem 1 OT Problem #1 Knowledge Deficit OT Goal 1 Goal / Goal Update 1. Patient to be independent with instructed materials. Target Visit 8 OT Problem 2 OT Problem #2 Pain OT Goal 1 Goal / Goal Update 1. Patient to report reduced pain in the left wrist/forearm during ADLs, reporting no instances above 2/10. Target Visit 8 OT Problem 3 OT Problem #3 Impaired Strength OT Goal 1 Goal / Goal Update 1. Patient to gradually return to gentle strengthening program of the forearm and wrist without pain with 1 lb. free weights to improve functional strength around the affected structures to return to use for ADLs. Target Visit 8
--- NOTE | 2024-12-20 08:08 | OTOPDC ---
Assessment and note entered by Abdias Bhat, OTR/L, CHT OT D/C 12/20/24 OT Clinical Summary Pt called and requested to be discharged from therapy at this time due to therapy not helping her. D/C OT with goals not met.
== END 2024-12-19 23:59 | disposition home or self-care (01) ==
LOC: ANHOT 08:00
PROVIDERS: PCP Plastic Surgery; Visit Provider Plastic Surgery
DX: M25.532 Pain in left wrist (principal)
CPT/HCPCS: 97110; 97166; 97167; L3763